=== PATIENT | female | born 1995 | race Caucasian/White ===

== ENCOUNTER 2023-06-19 20:12 | Outpatient (REF) | payer MEDICAID, SELFPAY ==
[2023-06-19 20:39] LABS: COMMENT (LAB VIEW ONLY) 48.49 mg/dL; Prot/Crea Ur Ratio 0.12
== END 2023-06-19 20:13 | disposition home or self-care (01) ==
LOC: LBN 20:12
PROVIDERS: PCP Family Medicine; Visit Provider Obstetrics & Gynecology
DX: O16.9 Unspecified maternal hypertension, unspecified trimester (principal); Z3A.00 Weeks of gestation of pregnancy not specified
CPT/HCPCS: 82565; 84156